=== PATIENT | male | born 1975 | race Caucasian/White ===

== ENCOUNTER → 2016-07-21 | Day surgery (SDC) | payer OTHER ==
[~2016-07-21] VITALS: Ht 167.6 cm; Wt 117.9 kg
[~2016-07-21] MED LIST: ATOR1TAB19 PO; BACT800T5 PO; BACTRIM 160MG/800MG DS TAB PO SCH; BUPIVACAINE HCL 0.25% 10 ML VIAL As Ordered ONE; BUPIVACAINE HCL 0.25% 30 ML VIAL As Ordered ONE; BUPIVACAINE HCL 0.25% 30 ML VIAL XX ONE; KETOROLAC 60 MG/2 ML VIAL (J1885) As Ordered ONE; LIDOCAINE 1% SDV INJ 30 ML VIAL As Ordered ONE; LIDOCAINE 1% SDV INJ 30 ML VIAL XX ONE; LIDOCAINE 2% INJ 100 MG/5 ML SDV (FOR ANES.) As Ordered ONE; LIDOCAINE 2% MDV 20 ML VIAL As Ordered ONE; LIDOCAINE 2% MDV 20 ML VIAL XX ONE; LISI-542 PO; LR 1,000 ML IV SCH; MIDAZOLAM INJ 2 MG/2 ML VIAL (J2250) As Ordered ONE; ONDANSETRON 4MG/2ML VIAL (J2405) As Ordered ONE; ONDANSETRON 4MG/2ML VIAL (J2405) IV PRN; PERCOCET 5MG/325MG TAB PO PRN; PERCOCET PO; PROPOFOL 200 MG/20 ML VIAL As Ordered ONE; ceFAZolin 2 GM/D5W 50 ML IV BAG (J0690) As Ordered ONE; fentaNYL 100 MCG/2 ML INJECTION (J3010) IV PRN; fentaNYL 250 MCG/5 ML INJECTION (J3010) As Ordered ONE
[2016-07-21 14:30] VITALS: BP 129/71
--- NOTE | 2016-07-23 07:31 | RO ---
DATE OF PROCEDURE: 07/21/2016 PREOPERATIVE DIAGNOSES: Fertility and right painful varicocele. POSTOPERATIVE DIAGNOSES: Fertility and right painful varicocele. PROCEDURE: Bilateral vasectomy plus right varicocele repair. SURGEON: Dr. Cristian Booth CLASSIFIER TENDER: None. ANESTHESIA: General. FINDINGS: Right varicocele, bilateral vas deferens. ESTIMATED BLOOD LOSS: Minimal. COMPLICATIONS: None. HISTORY OF PRESENT ILLNESS: This is a 41-year-old male patient that actually would like to undergo a bilateral vasectomy. He also has a right varicocele which is symptomatic and has pain. For this reason, he has consented for bilateral vasectomy plus right-sided varicocele repair. PROCEDURE DESCRIPTION: In a patient under general anesthesia in supine position, after prepping and draping the area of concern, which included the entire genitalia and abdomen, we proceeded to actually palpate the left vas deferens and actually, with a sharp non-scalpel hemostat, we actually punctured the skin on top of the vas deferens and spread it open. With ring non-scalpel forceps, we grabbed the vas deferens and dissected it. We then cut the vas deferens and sent a piece for permanent pathology analysis. We fulgurated both edges of the cut vas deferens and tied both edges with catgut chromic #3-0. We then proceeded to do the same maneuver on the right side. We palpated the right vas deferens and then, with a non-scalpel sharp hemostat, we punctured the skin on top of the vas deferens and spread it open. We then proceeded to actually dissect the vas deferens and then cut the vas deferens out and sent a piece for permanent pathology analysis. We then actually fulgurated each vas deferens end and then tied each end with catgut chromic. We then proceeded to actually close the skin and scrotal sac with catgut chromic #3-0, separate stitches on the right side and the left side. We then proceeded to actually do an incision in the right inguinal area for about 4 cm transverse incision on top of the external inguinal ring. Through this incision, with electro Bovie cautery, we cut the Maximo and the Camper's fascia. We identified the spermatic cord and then dissected the spermatic cord out. We then proceeded to actually put the [employer]-Blair beneath the spermatic cord, lifting it above the inguinal incision. We then proceeded to actually cut the external spermatic fascia and then dissect the varicosity veins in and dissect the vas deferens. We preserved the vas deferens intact and then proceeded to actually dissect every varicosity vein and cut it. We sent a specimen of varicose veins to permanent pathology, ligated the varicose veins with #0 silk stitches and #2-0 silk ties on both ends. We then secured hemostasis and dropped the spermatic cord into the inguinal canal. We closed the Maximo and Camper's with catgut chromic, and we closed the skin with subcuticular #4-0 Monocryl subcuticular stitches in a running fashion. We placed Mastisol, Steri-Strips, Telfa, and Tegaderm on top of the wound. PLAN: The patient will go home today with antibiotic and pain medication. Followup in 2 weeks at [facility].
== END ==
LOC: M SDC 08:21
PROVIDERS: ATTEND Urology
DX: Z30.2 Encounter for sterilization (principal); I86.1 Scrotal varices; I10 Essential (primary) hypertension; E78.5 Hyperlipidemia, unspecified; G47.9 Sleep disorder, unspecified; M19.90 Unspecified osteoarthritis, unspecified site; F17.210 Nicotine dependence, cigarettes, uncomplicated; Z79.899 Other long term (current) drug therapy
CPT/HCPCS: 55250; 55535; 88302; J0690; J1885; J2250; J2405; J3010